=== PATIENT | male | born 1960 | race Caucasian/White ===

== ENCOUNTER 2020-11-25 23:26 | Emergency (ER) | payer OTHER ==
[~2020-11-25] VITALS: Ht 185.4 cm; Wt 92.0 kg
[~2020-11-25 23:26] MED LIST: COLCRYS0.6 MG PO; MELOXICAM15 MG PO; MOTRIN800 MG PO; NORCO 5-325 TA1 EACH PO; ZANTAC150 MG PO
[2020-11-25] MEDS ORDERED: ARMOUR THYROID90 MG PO (23:49)
[2020-11-25] MEDS ORDERED: PEPCID AC10 MG PO (23:49)
[2020-11-25] MEDS ORDERED: INDOMETHACIN50 MG PO (23:50)
--- NOTE | 2020-11-26 00:37 | EKG ---
[facility] [address] [facility] [place] [address] Signed Normal sinus rhythm ST Elevation of 1 mm noted on the inferior leads, consider ischemia T wave abnormality, consider anterior ischemia Prolonged QT Abnormal ECG No previous ECGs available Confirmed by JACQUIE CABRAL MD ([id number]) on 11/26/2020 12:37:32 AM Electronically Signed By: JACQUIE CABRAL MD 11/26/20 0037 PATIENT NAME: AIMEE AVALOS Electrocardiogram DATE OF : 60 PHYSICIAN: JACQUIE CABRAL MD REPORT #: [id number] REPORT IS CONFIDENTIAL AND NOT TO BE RELEASED WITHOUT AUTHORIZATION
--- NOTE | 2020-11-26 13:26 | EKG ---
[facility] [address] [place] [address] Signed Normal sinus rhythm Possible Anterolateral infarct , age undetermined ST segment elevation is not pronounced as in the prior EKGs. Abnormal ECG When compared with ECG of 25-NOV-2020 23:36, Borderline criteria for Anterolateral infarct are now present Confirmed by JACQUIE CABRAL MD ([id number]) on 11/26/2020 1:26:26 PM Electronically Signed By: JACQUIE CABRAL MD 11/26/20 1326 PATIENT NAME: AIMEE AVALOS Electrocardiogram DATE OF : 60 PHYSICIAN: JACQUIE CABRAL MD REPORT #: [id number] REPORT IS CONFIDENTIAL AND NOT TO BE RELEASED WITHOUT AUTHORIZATION
== END 2020-11-26 05:00 | disposition home or self-care (01) ==
LOC: ED 23:26
DX: R07.9 Chest pain, unspecified (principal); K21.9 Gastro-esophageal reflux disease without esophagitis; E03.9 Hypothyroidism, unspecified; M10.9 Gout, unspecified; Z79.899 Other long term (current) drug therapy
CPT/HCPCS: 71045; 71260; 80053; 83735; 84484; 85025; 93005; 93010; 99285-25; Q9967

== ENCOUNTER 2020-11-27 11:08 | Emergency (ER) | payer OTHER ==
[~2020-11-27] VITALS: Ht 185.4 cm; Wt 90.7 kg
[~2020-11-27 11:08] MED LIST changes: +ARMOUR THYROID90 MG PO; +INDOMETHACIN50 MG PO; +PEPCID AC10 MG PO
--- OUTSIDE RECORDS SUMMARY | 2020-11-27 11:10 | XMS ---
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 Rui has no Care Guidelines for this patient. [facility] VISIT COUNT (12 MO.) 2 [facility] TOTAL 2 NOTE: Visits indicate total known visits. [place] [place] (12 MO.) 11/27/2020 11:09 [facility] [place] TYPE: Emergency COMPLAINT: - CHEST PAIN 11/25/2020 23:26 [facility] TYPE: Emergency COMPLAINT: - RT SIDE CHEST AND ARM PAIN INPATIENT VISIT TRACKING (12 MO.) No inpatient visits to display in this time frame [email or web address]
--- NOTE | 2020-11-28 14:54 | EKG ---
[facility] [address] [facility] [place], [place] [address] Signed Sinus tachycardia Otherwise normal ECG No previous ECGs available Confirmed by AGUILAR LLOYD DO ([id number]) on 11/28/2020 2:53:53 PM Electronically Signed By: AGUILAR LLOYD DO 11/28/20 1454 PATIENT NAME: AIMEE AVALOS Electrocardiogram DATE OF : 60 PHYSICIAN: AGUILAR LLOYD DO REPORT #: [id number] REPORT IS CONFIDENTIAL AND NOT TO BE RELEASED WITHOUT AUTHORIZATION
== END 2020-11-27 15:39 | disposition short-term general hospital (02) ==
LOC: ED 11:08
DX: I21.4 Non-ST elevation (NSTEMI) myocardial infarction (principal); K21.9 Gastro-esophageal reflux disease without esophagitis; E03.9 Hypothyroidism, unspecified; M10.9 Gout, unspecified; Z79.899 Other long term (current) drug therapy; Z20.822 Contact with and (suspected) exposure to COVID-19
CPT/HCPCS: 71045; 80053; 84484; 85025; 93005; 93010; 96374; 99285-25; C9803; U0003

== ENCOUNTER 2024-03-30 16:07 | Emergency (ER) | payer OTHER ==
[~2024-03-30] VITALS: Ht 185.4 cm; Wt 97.1 kg
[2024-03-30 16:24] LABS: BASOPHILS 1.8 % (0-2); EOSINOPHILS 4.6 % (0-6); HEMATOCRIT 43.5 % (35.0-50.0); HEMOGLOBIN 14.7 g/dL (12.0-18.0); LYMPHOCYTES 25.9 % (24-44); MCH 29.1 (27-36); MCHC 33.8 g/dl (30-36); MCV 86.1 fl (81-99); MONOCYTES 11.3 % (0-12); NEUTROPHILS 56.4 % (39-80); PLATELET COUNT 257 K/uL (140-440); RBC 5.05 M/ul (4.3-5.7); RDW 14.7 (10.5-15.0)
[2024-03-30 16:34] LABS: BUN/CREATININE RATIO 21.81 (6.0-28.6); CALCIUM 9.1 mg/dL (8.5-10.1); CREATININE, SERUM 1.1 mg/dL (0.70-1.30)
[2024-03-30] MEDS ORDERED: HYDROCODON-ACE1 EA10 PO (17:45)
[2024-03-30 17:50] VITALS: BP 122/74
== END 2024-03-30 17:50 | disposition home or self-care (01) ==
LOC: ED 16:07
PROVIDERS: Emergency Medicine
DX: S22.31XA Fracture of one rib, right side, initial encounter for closed fracture (principal); M54.2 Cervicalgia; V89.2XXA Person injured in unspecified motor-vehicle accident, traffic, initial encounter; E03.9 Hypothyroidism, unspecified; Z79.899 Other long term (current) drug therapy; Z79.890 Hormone replacement therapy
CPT/HCPCS: 36415; 70450; 71260; 72125; 74177; 80048; 85025; 99284-25; G0480; Q9967